=== PATIENT | female | born 1995 ===

== ENCOUNTER 2020-11-22 14:23 | Outpatient (CLI) | payer OTHER | END 2020-11-22 14:48 | disposition home or self-care (01) | LOC: SONOGRAMA 14:23 | PROVIDERS: ATTEND Surgery | DX: D24.1 Benign neoplasm of right breast (principal); R92.0 Mammographic microcalcification found on diagnostic imaging of breast; N60.11 Diffuse cystic mastopathy of right breast; N60.12 Diffuse cystic mastopathy of left breast ==

== ENCOUNTER 2020-12-20 07:01 | Day surgery (SDC) | payer OTHER ==
[~2020-12-20 07:01] MED LIST: SINGULAIR10 MG PO
== END 2020-12-20 18:05 | disposition home or self-care (01) ==
LOC: CIR.AMB 07:01
PROVIDERS: ATTEND Surgery
DX: D24.1 Benign neoplasm of right breast (principal); Z20.822 Contact with and (suspected) exposure to COVID-19